=== PATIENT | female | born 1965 | race Caucasian/White ===

== ENCOUNTER → 2021-01-30 | Outpatient (CLI) | payer SELFPAY ==
[~2021-01-30] MED LIST: AZIT250 PO; OXYACE5T PO
== END ==
LOC: LAB 10:22 → LAB SHORT 10:22
DX: R30.0 Dysuria (principal)
CPT/HCPCS: 87077; 87086; 87186

== ENCOUNTER → 2021-03-28 | Outpatient (CLI) | payer SELFPAY | END | disposition home or self-care (01) | LOC: LAB SHORT 08:12 → LAB 08:12 | DX: D25.9 Leiomyoma of uterus, unspecified (principal) | CPT/HCPCS: 88305 ==

== ENCOUNTER → 2021-07-23 | Outpatient (CLI) | payer SELFPAY ==
[2021-07-23 14:58] LABS: BASOPHILS ABSOLUTE AUTO 0.02 K/mm3 (0.00-0.23); BASOPHILS PERCENT AUTO 0 % (0-2); EOSINOPHILS ABSOLUTE AUTO 0.07 K/mm3 (0.00-0.68); EOSINOPHILS PERCENT AUTO 1 % (0-6); Hematocrit 44.4 % (33.0-51.0); Hemoglobin 14.2 g/dL (11.5-16.0); IMMATURE GRAN ABSOLUTE AUTO 0.03 K/mm3 (0.00-0.10); IMMATURE GRAN PERCENT AUTO 0 % (0-1); LYMPHOCYTES PERCENT AUTO 16 % (21-46); MONOCYTES ABSOLUTE AUTO 0.47 K/mm3 (0.16-1.47); MONOCYTES PERCENT AUTO 5 % (4-13); Mean Corpuscular HGB 27.1 pg (26.0-34.0); Mean Corpuscular Volume 85 fL (80-100); Mean Platelet Volume 9.1 fL (9.1-12.4); NEUTROPHILS ABSOLUTE AUTO 6.94 K/mm3 (1.96-9.15); NEUTROPHILS PERCENT AUTO 78 % (41-73); Platelet Count 309 K/mm3 (150-400); RDW Coefficient Variation 14.7 % (11.7-14.2); RDW Standard Deviation 45.1 fL (35.1-46.3); Red Blood Cell Count 5.24 M/mm3 (3.80-5.20); White Blood Cell Count 8.93 K/mm3 (4.00-11.30)
[2021-07-23 15:07] LABS: Alanine Aminotransfer (ALT/SGP 50 U/L (12-78); Albumin, Blood 4.1 g/dL (3.4-5.0); Alk Phos 76 U/L (50-136); Anion Gap 6 mmol/L (6-16); Aspartate Aminotrans (AST/SGOT 27 U/L (12-37); Bilirubin, Direct 0.2 mg/dL (0.0-0.3); Bilirubin, Indirect 0.8 mg/dL (0.1-0.7); Blood Urea Nitrogen 11 mg/dL (8-24); Bun/Creatinine Ratio 13.2 (12.0-20.0); CO2, Blood 24 mmol/L (21-32); Calcium, Blood 9.3 mg/dL (8.5-10.1); Chloride, Blood 105 mmol/L (98-108); Creatinine, Blood 0.84 mg/dL (0.40-1.00); Globulin, Blood 4.1 g/dL (2.2-4.0); Glomerular Filtration Rate >60 (60-); Glucose, Blood 103 mg/dL (70-99); Potassium, Blood 3.6 mmol/L (3.5-5.5); Sodium, Blood 135 mmol/L (136-145); Total Protein, Blood 8.2 g/dL (6.4-8.2)
== END | disposition home or self-care (01) ==
LOC: LAB 13:00 → LAB SHORT 13:00
PROVIDERS: Nurse Practitioner
DX: N30.00 Acute cystitis without hematuria (principal); N73.9 Female pelvic inflammatory disease, unspecified
CPT/HCPCS: 80053; 82248; 85025; 87086; 87147

== ENCOUNTER → 2021-07-30 | Outpatient (CLI) | payer SELFPAY | END | disposition home or self-care (01) | LOC: LAB SHORT 08:40 → LAB 08:40 | DX: R30.0 Dysuria (principal) | CPT/HCPCS: 87086 ==

== ENCOUNTER 2021-10-30 06:00 | Day surgery (SDC) | payer SELFPAY ==
[~2021-10-30] VITALS: Ht 170.2 cm; Wt 117.7 kg
--- NOTE | 2021-10-30 06:34 | NUR ---
PT AMBULATES TO SDS c STEADY GAIT. REPORTS NPO SINCE MIDNIGHT. History, Chart, Medications and Allergies reviewed before start of procedure. Lungs clear T/O to Auscultation. GLASSES TO PACU. + VOID.
--- NOTE | 2021-10-30 10:21 | NUR ---
10/30/21 Awilda Frankel [id number] USED FOR THE THE INTRAOPERATIVE CHOLANGIOGRAM.
[2021-10-30 15:25] LABS: BASOPHILS ABSOLUTE AUTO 0.02 K/mm3 (0.00-0.23); BASOPHILS PERCENT AUTO 0 % (0-2); EOSINOPHILS PERCENT AUTO 0 % (0-6); Hematocrit 37.3 % (33.0-51.0); Hemoglobin 12.2 g/dL (11.5-16.0); IMMATURE GRAN ABSOLUTE AUTO 0.11 K/mm3 (0.00-0.10); IMMATURE GRAN PERCENT AUTO 1 % (0-1); LYMPHOCYTES ABSOLUTE AUTO 0.74 K/mm3 (0.84-5.20); LYMPHOCYTES PERCENT AUTO 4 % (21-46); MONOCYTES ABSOLUTE AUTO 0.43 K/mm3 (0.16-1.47); MONOCYTES PERCENT AUTO 3 % (4-13); Mean Corpuscular HGB 28.7 pg (26.0-34.0); Mean Corpuscular HGB Conc 32.7 g/dL (31.5-36.5); Mean Corpuscular Volume 88 fL (80-100); Mean Platelet Volume 8.9 fL (9.1-12.4); NEUTROPHILS ABSOLUTE AUTO 16.02 K/mm3 (1.96-9.15); NEUTROPHILS PERCENT AUTO 93 % (41-73); Platelet Count 315 K/mm3 (150-400); RDW Coefficient Variation 15.5 % (11.7-14.2); RDW Standard Deviation 49.7 fL (35.1-46.3); Red Blood Cell Count 4.25 M/mm3 (3.80-5.20); White Blood Cell Count 17.32 K/mm3 (4.00-11.30)
--- NOTE | 2021-10-30 16:10 | NUR ---
UP TO VOID, TOLERATED WELL, 46CC LEFT IN BLADDER BY SCAN
== END 2021-10-30 18:17 | disposition home or self-care (01) ==
LOC: ORSCMMR 06:00 → BC 13:40 → ORSCMMR 18:17
PROVIDERS: Obstetrics & Gynecology
PROC: 0UT2FZZ Resection of Bilateral Ovaries, Via Natural or Artificial Opening With Percutaneous Endoscopic Assistance (ICD-10-PCS; principal; 2021-10-30 07:30)
PROC: BF031ZZ Plain Radiography of Gallbladder and Bile Ducts using Low Osmolar Contrast (ICD-10-PCS; principal; 2021-10-30 07:30)
PROC: 0UT9FZZ Resection of Uterus, Via Natural or Artificial Opening With Percutaneous Endoscopic Assistance (ICD-10-PCS; principal; 2021-10-30 07:30)
PROC: 0UT7FZZ Resection of Bilateral Fallopian Tubes, Via Natural or Artificial Opening With Percutaneous Endoscopic Assistance (ICD-10-PCS; principal; 2021-10-30 07:30)
PROC: 0FT44ZZ Resection of Gallbladder, Percutaneous Endoscopic Approach (ICD-10-PCS; principal; 2021-10-30 07:30)
DX: R10.2 Pelvic and perineal pain (principal); D25.9 Leiomyoma of uterus, unspecified; N71.9 Inflammatory disease of uterus, unspecified; N84.0 Polyp of corpus uteri; D26.9 Other benign neoplasm of uterus, unspecified; K80.10 Calculus of gallbladder with chronic cholecystitis without obstruction; N73.6 Female pelvic peritoneal adhesions (postinfective); E66.01 Morbid (severe) obesity due to excess calories; Z68.41 Body mass index [BMI] 40.0-44.9, adult
CPT/HCPCS: 36415; 74300; 85025; 88304; 88307; 94762; A9270; C1729; J0171; J0690; J1100; J1610; J1885; J2250; J2405; J2704; J3010; J7120

== ENCOUNTER → 2023-03-12 | Outpatient (CLI) | payer SELFPAY | END | disposition home or self-care (01) | LOC: LAB SHORT 16:56 | DX: R30.0 Dysuria (principal) | CPT/HCPCS: 87086 ==

== ENCOUNTER → 2023-03-27 | Outpatient (CLI) | payer SELFPAY ==
[2023-03-29 13:09] LABS: HSV-1 DNA Negative (Negative); HSV-2 DNA Negative (Negative)
== END | disposition home or self-care (01) ==
LOC: LAB SHORT 13:28 → LAB 13:28
PROVIDERS: Family Medicine
DX: R30.0 Dysuria (principal)
CPT/HCPCS: 87070; 87205; 87529